=== PATIENT | female | born 1970 | race Hispanic/Latino ===

== ENCOUNTER 2020-02-07 16:02 | Inpatient (IN) | payer OTHER ==
[~2020-02-07] VITALS: Ht 152.4 cm; Wt 101.0 kg
[2020-02-07 16:48] LABS: BASOPHILS % (AUTO) 0.3 % (0.0-5.0); EOSINOPHILS % (AUTO) 0.2 % (0.0-8.0); HEMATOCRIT 36.1 % (36-48); LYMPHOCYTES % (AUTO) 7.8 % (21.0-51.0); MEAN CORPUSCULAR HEMOGLOBIN 25.1 pg (27.0-33.0); MEAN CORPUSCULAR HGB CONC 32.1 g/dL (32.0-36.0); MONOCYTES % (AUTO) 5.6 % (3.0-13.0); NEUTROPHILS % (AUTO) 85.2 % (40.0-77.0); PLATELET COUNT (AUTO) 321 K/uL (130-400); RED BLOOD CELL COUNT(AUTO) 4.63 MIL/uL (4.00-5.50); RED CELL DISTRIBUTION WIDTH 13.8 % (11.0-15.5); WHITE BLOOD COUNT (AUTO) 17.6 K/uL (4.8-10.8)
[2020-02-07 17:13] LABS: POTASSIUM 3.7 mmol/L (3.5-5.1)
[2020-02-07 17:17] LABS: ALBUMIN 2.4 g/dL (3.5-5.0); BILIRUBIN,TOTAL 0.4 mg/dL (0.2-1.0); TOTAL PROTEIN, SERUM 9.2 g/dL (6.0-8.3)
[2020-02-07 17:21] LABS: INR 0.98 (0.85-1.15); PARTIAL THROMBOPLASTIN TIME 31.7 SEC (26.3-35.5); PROTHROMBIN TIME 10.6 SEC (9.6-11.6)
[2020-02-07] MEDS ORDERED: ZOSYN 3.375GM+NS 50ML 50 ML IV ONE (17:22)
[2020-02-07 17:30] LABS: CRP QUANTITATIVE 462.8 mg/L (0.00-9.0)
[2020-02-07 17:54] LABS: ERYTHROCYTE SEDIMENTATION RATE 132 MM/HR (0-20)
[2020-02-07] MEDS ORDERED: VANCOMYCIN 1.5 GM in SODIUM CHLORIDE 0.9% 250 ML IV SCH (18:15)
[2020-02-07] MEDS ORDERED: ONDANSETRON HCL 4 MG/2 ML VIAL IV PRN (20:15)
[2020-02-07] MEDS ORDERED: NITROGLYCERIN 0.4 MG SL TAB SL PRN (20:15)
[2020-02-07] MEDS ORDERED: ACETAMINOPHEN 325 MG TAB PO PRN (20:15)
[2020-02-07] MEDS ORDERED: GLUCAGON 1MG KIT 1 MG ML IM PRN (20:15)
[2020-02-07] MEDS ORDERED: VANCOMYCIN PROTOCOL PER PHARMACY IV PRN (20:15)
[2020-02-07] MEDS ORDERED: DEXTROSE 50%-WATER 50 ML DISP.SYRIN IV PRN (20:15)
[2020-02-07 20:26] LABS: HEMOGLOBIN A1C 11.3 % (4.0-6.0)
[2020-02-07] MEDS ORDERED: COMPOUND IV REFRIGERATED 1 EACH IVSOLN MISC PRN (20:45)
[2020-02-07 21:45] VITALS: BP 161/75
[2020-02-07] MEDS ORDERED: INSLAN SQ ×2 (22:53→22:54)
[2020-02-07] MEDS: FAMOTIDINE 20MG TAB 20 MG TAB PO SCH (23:05)
[2020-02-07] MEDS: INSULIN HUMULIN R 100 UNIT/ML 3ML SQ SCH (23:05)
[2020-02-07] MEDS: SODIUM CHLORIDE 0.9% 1000ML 1,000 ML IV SCH (23:05)
[2020-02-07 23:39] VITALS: BP 154/74
[2020-02-08] VITALS (24 sets, daily range): BP systolic 93–152; BP diastolic 41–92
[2020-02-08] MEDS: ACETAMINOPHEN 325 MG TAB PO PRN ×2 (01:25→23:28)
[2020-02-08] MEDS: ZOSYN 3.375GM+NS 50ML 50 ML IV SCH ×3 (03:52→18:36)
[2020-02-08 06:03] LABS: BASOPHILS % (AUTO) 0.2 % (0.0-5.0); EOSINOPHILS % (AUTO) 0.2 % (0.0-8.0); HEMATOCRIT 29.4 % (36-48); LYMPHOCYTES % (AUTO) 12.8 % (21.0-51.0); MEAN CORPUSCULAR HEMOGLOBIN 24.8 pg (27.0-33.0); MEAN CORPUSCULAR HGB CONC 31.6 g/dL (32.0-36.0); MEAN CORPUSCULAR VOLUME 78.4 fL (79-99); MONOCYTES % (AUTO) 6.5 % (3.0-13.0); NEUTROPHILS % (AUTO) 79.6 % (40.0-77.0); PLATELET COUNT (AUTO) 274 K/uL (130-400); RED BLOOD CELL COUNT(AUTO) 3.75 MIL/uL (4.00-5.50); RED CELL DISTRIBUTION WIDTH 13.8 % (11.0-15.5); WHITE BLOOD COUNT (AUTO) 14.5 K/uL (4.8-10.8)
[2020-02-08 06:19] LABS: ALBUMIN 1.8 g/dL (3.5-5.0); BILIRUBIN,TOTAL 0.4 mg/dL (0.2-1.0); CREATININE 0.8 mg/dL (0.5-1.5); POTASSIUM 3.8 mmol/L (3.5-5.1); TOTAL PROTEIN, SERUM 7.4 g/dL (6.0-8.3)
[2020-02-08] MEDS: INSULIN HUMULIN R 100 UNIT/ML 3ML SQ SCH ×4 (07:30→21:42)
[2020-02-08] MEDS: SODIUM CHLORIDE 0.9% 1000ML 1,000 ML IV SCH ×2 (07:41→16:59)
[2020-02-08] MEDS: VANCOMYCIN 1.5 GM in SODIUM CHLORIDE 0.9% 250 ML IV SCH ×2 (08:00→21:40)
[2020-02-08] MEDS: FAMOTIDINE 20MG TAB 20 MG TAB PO SCH ×2 (09:00→21:40)
[2020-02-08] MEDS: ENOXAPARIN SODIUM 30 MG/0.3 ML SQ SCH (09:00)
[2020-02-08] MEDS ORDERED: PROPOFOL 1000 MG/100 ML 100 ML IV ONE (11:56)
[2020-02-08] MEDS ORDERED: KETAMINE 50MG/ML SYRINGE 50 MG/ML DISP.SYRIN IV ONE (11:57)
[2020-02-08] MEDS ORDERED: FENTANYL CITRATE PF 50 MCG/1 ML 2ML VIAL ONE (11:59)
[2020-02-08] MEDS ORDERED: MIDAZOLAM HCL 1 MG/ML 2ML VIAL ONE (11:59)
[2020-02-08] MEDS ORDERED: ONDANSETRON HCL 4 MG/2 ML VIAL ONE (11:59)
[2020-02-08] MEDS ORDERED: BUPIVACAINE/PF 0.5% 30ML VIAL ONE (12:07)
[2020-02-08] MEDS ORDERED: LIDOCAINE HCL 1% 20 ML VIAL ONE (12:07)
--- NOTE | 2020-02-08 14:30 | NUR ---
REPORT S/P L MET AMPUTATION WITH LOCAL/BLOCK RECEIVED @ 1410 H 96, O2 SATS 94-95 ON RA, B/P 133/84 T 98.5, LAST BLOOD SUGAR @ 1335 235, NOT COVERED, BACK IN ROOM , FULLY AWAKE DENIES PAIN DRESSING INTACT , 2 NAHUN DRAINS UNDER DRESSING. FABIO CONTINUE TO MONITOR.
--- NOTE | 2020-02-08 14:42 | NUR ---
CONTACTED DAUGHTER AT [phone] AND GIVE HER UPDATE ON MOTHER S/P LET MET AMPUTATION. SHE WAS ASKING IF FAMILY CAN SEND HERNANDES BUT WERE TOLD PER POULTRY PINNER NOT AT THIS TIME. INSTRUCTED HER TO CALL IF SHE HAD ANY QUESTIONS.
--- NOTE | 2020-02-08 17:59 | NUR ---
INITIAL SW spoke with patient's sister, Adri Wen. Patient lives with her sister but recently moved out and lives with her adult son and adult daughter. She has no home services. DME: wheelchair. As per sister, patient was able to complete ADL's independently int he past but in the last two months patient has needed assistance. Patient does not drive. She has no PCP. As per sister, patient had set appointment at [facility] but was not able to keep appointment. Pharmacy is [facility] in [place]. Sister informed SW that patient will return to live with her once she is discharged so she can assist patient as needed. DCP is home. Patient has no insurance or benefits. She is a [place] citizen and has worked in the [place]. SW educated sister on [employer] and [employer] prescription discount programs. Patient is being assisted by for; to (do) for financial assistance. Addendum: 02/08/20 at 1803 by KRYSTIAN ELMORE SS Amended: Links added.
--- NOTE | 2020-02-08 20:21 | NUR ---
MEDS SHIFT ASSESSMENT DONE, PLEASE REFER TO CHART. DUE MEDS ADMINISTERED, TOLERATED WELL. CALL LIGHT WITHIN REACH. WILL MONITOR PT. Addendum: 02/09/20 at 0321 by LORETO PRYOR RN RN Amended: Links added.
[2020-02-08] MEDS: INSULIN GLARGINE 100 UNITS/ML 10 ML VIAL SQ SCH (21:42)
[2020-02-09] VITALS: BP 161/92
[2020-02-09] MEDS: ZOSYN 3.375GM+NS 50ML 50 ML IV SCH ×3 (01:27→17:25)
--- NOTE | 2020-02-09 01:27 | NUR ---
MEDS PT FAIRLY ASLEEP. NO DISTRESS NOTED. DUE MEDS HUNG. KEPT UNDISTURBED FOR NOW. WILL MONITOR PT.
[2020-02-09] MEDS: SODIUM CHLORIDE 0.9% 1000ML 1,000 ML IV SCH ×2 (01:50→12:13)
[2020-02-09 04:00] VITALS: BP 158/76
[2020-02-09 05:24] LABS: BASOPHILS % (AUTO) 0.3 % (0.0-5.0); EOSINOPHILS % (AUTO) 0.4 % (0.0-8.0); HEMATOCRIT 28.9 % (36-48); LYMPHOCYTES % (AUTO) 11.4 % (21.0-51.0); MEAN CORPUSCULAR HEMOGLOBIN 24.5 pg (27.0-33.0); MEAN CORPUSCULAR HGB CONC 31.1 g/dL (32.0-36.0); MEAN CORPUSCULAR VOLUME 78.7 fL (79-99); MONOCYTES % (AUTO) 6.4 % (3.0-13.0); PLATELET COUNT (AUTO) 272 K/uL (130-400); RED BLOOD CELL COUNT(AUTO) 3.67 MIL/uL (4.00-5.50); RED CELL DISTRIBUTION WIDTH 13.9 % (11.0-15.5); WHITE BLOOD COUNT (AUTO) 13.1 K/uL (4.8-10.8)
--- NOTE | 2020-02-09 05:45 | NUR ---
SWAB CALLED LAB FOR MRSA SCREEN RESULTS AND REMOTE CONTROL ASSEMBLER WAS INFORMED THAT SWAB WAS NEVER SUBMITTED. NASAL SWAB DONE THEN SENT TO LAB FOR ANALYSIS.
[2020-02-09 05:55] LABS: ALBUMIN 1.8 g/dL (3.5-5.0); BILIRUBIN,TOTAL 0.3 mg/dL (0.2-1.0); CREATININE 0.9 mg/dL (0.5-1.5); TOTAL PROTEIN, SERUM 7.3 g/dL (6.0-8.3)
[2020-02-09] MEDS: INSULIN HUMULIN R 100 UNIT/ML 3ML SQ SCH ×4 (05:57→21:35)
--- NOTE | 2020-02-09 06:40 | NUR ---
MD DR MCCAULEY IN TO SEE PT. SX DRESSING CHANGED BY . NO NEW ORDERS GIVEN, MD JUST STATED TO FOLLOW UP ONCOLOGY CONSULT. BIOPSY RESULTS FROM DERRY COPIED, PLACED IN CHART.
[2020-02-09 08:00] VITALS: BP 178/81
[2020-02-09] MEDS: FAMOTIDINE 20MG TAB 20 MG TAB PO SCH ×2 (09:38→19:48)
[2020-02-09] MEDS: VANCOMYCIN 1.5 GM in SODIUM CHLORIDE 0.9% 250 ML IV SCH ×2 (09:38→20:58)
[2020-02-09] MEDS: ENOXAPARIN SODIUM 30 MG/0.3 ML SQ SCH (09:38)
[2020-02-09 12:00] VITALS: BP 153/83
[2020-02-09 16:00] VITALS: BP 164/83
--- NOTE | 2020-02-09 16:49 | NUR ---
RD NOTIFICATION PT DX OF LEFT FOOT CELLULITIS AND SEPSIS. STATUS POST LEFT FOOT AMPUTATION. PT IS CURRENTLY ON A 75GM CCD, RECOMMENDATION TO PLACE PATIENT ON A 60 GM CCD TO NORMALIZE BLOOD SUGAR LEVELS. TO INCREASE PROTEIN INTAKE RECOMMENDATION FOR GLUCERNA TID. PO INTAKE IS ADEQUATE PER RN. RECENT LAB VALUES: ALB 1.8 (L), BG 212 (H). LAST RECORDED BM WAS 02/07/20. PT HAS A BMI OF 43.47 (OBESITY III) Addendum: 02/09/20 at [address] Amended: Links added.
[2020-02-09] MEDS: INSULIN GLARGINE 100 UNITS/ML 10 ML VIAL SQ SCH (19:49)
[2020-02-09 20:35] VITALS: BP 160/79
--- NOTE | 2020-02-09 22:00 | NUR ---
paged hospitalist for patient's high blood pressure of 185/84 and heart rte of 87. pending call back.
--- NOTE | 2020-02-09 22:21 | NUR ---
paged hospitalist again for patient's hypertension. pending call back.
[2020-02-09] MEDS ORDERED: HYDRALAZINE HCL 20 MG/ML VIAL ONE (22:28)
[2020-02-09] MEDS: ACETAMINOPHEN 325 MG TAB PO PRN (22:31)
[2020-02-10] VITALS (7 sets, daily range): BP systolic 140–181; BP diastolic 75–94
[2020-02-10] MEDS: DIPHENHYDRAMINE HCL 25 MG CAPSULE PO PRN (00:32)
[2020-02-10] MEDS: SODIUM CHLORIDE 0.9% 1000ML 1,000 ML IV SCH ×3 (00:44→16:51)
[2020-02-10] MEDS: ZOSYN 3.375GM+NS 50ML 50 ML IV SCH ×3 (01:03→16:51)
[2020-02-10] MEDS: ACETAMINOPHEN 325 MG TAB PO PRN ×2 (03:24→21:30)
[2020-02-10 04:57] LABS: BASOPHILS % (AUTO) 0.4 % (0.0-5.0); HEMATOCRIT 27.1 % (36-48); MEAN CORPUSCULAR HEMOGLOBIN 24.6 pg (27.0-33.0); MEAN CORPUSCULAR HGB CONC 31.4 g/dL (32.0-36.0); MEAN CORPUSCULAR VOLUME 78.3 fL (79-99); MONOCYTES % (AUTO) 5.9 % (3.0-13.0); NEUTROPHILS % (AUTO) 71.9 % (40.0-77.0); NUCLEATED RED BLOOD CELLS 0.2 % (0.0-0.19); PLATELET COUNT (AUTO) 254 K/uL (130-400); RED BLOOD CELL COUNT(AUTO) 3.46 MIL/uL (4.00-5.50); RED CELL DISTRIBUTION WIDTH 13.8 % (11.0-15.5); WHITE BLOOD COUNT (AUTO) 10.9 K/uL (4.8-10.8)
[2020-02-10 05:31] LABS: ALBUMIN 1.6 g/dL (3.5-5.0); BILIRUBIN,TOTAL 0.3 mg/dL (0.2-1.0); CREATININE 0.9 mg/dL (0.5-1.5); PLATELET MORPHOLOGY LARGE PLTS PRESENT; POTASSIUM 3.4 mmol/L (3.5-5.1)
[2020-02-10] MEDS: INSULIN HUMULIN R 100 UNIT/ML 3ML SQ SCH ×4 (05:42→20:09)
[2020-02-10] MEDS ORDERED: POTASSIUM CHLORIDE 10% ELIXIR 20 MEQ/15 ML UDCUP PO PRN (06:15)
[2020-02-10] MEDS ORDERED: POTASSIUM CHLORIDE 20MEQ/100ML 100 ML IV PRN (06:15)
[2020-02-10] MEDS ORDERED: LIDOCAINE HCL-MPF 1% 2ML VIAL IV PRN (06:15)
[2020-02-10] MEDS ORDERED: POTASSIUM CHLORIDE 20 MEQ ERTAB PO ONE (06:17)
[2020-02-10] MEDS: POTASSIUM CHLORIDE 20 MEQ ERTAB PO PRN ×3 (06:41→12:55)
[2020-02-10] MEDS: VANCOMYCIN 1.5 GM in SODIUM CHLORIDE 0.9% 250 ML IV SCH ×2 (07:11→20:02)
[2020-02-10] MEDS: HYDRALAZINE HCL 20 MG/ML VIAL IV PRN ×2 (09:03→17:08)
[2020-02-10] MEDS: FAMOTIDINE 20MG TAB 20 MG TAB PO SCH ×2 (09:04→20:02)
[2020-02-10] MEDS: ENOXAPARIN SODIUM 30 MG/0.3 ML SQ SCH (09:04)
[2020-02-10] MEDS ORDERED: IOHEXOL-350 75 ML VIAL IV ONE (14:45)
--- NOTE | 2020-02-10 16:21 | NUR ---
RD FOLLOW UP PER MEDICAL RECORD PT HAS BEEN EXPERIENCING HIGH BLOOD PRESSURE. DIET WILL HAVE HEART HEALTHY MODIFICATION TO AID IN CONTROLLING BLOOD PRESSURE. PER MEDICAL RECORD PT IS CONSUMING 100% OF MEALS, WILL DECREASE NUTRITIONAL SUPPLEMENT TO BID. DIETARY WILL CONTINUE TO MONITOR. Addendum: 02/10/20 at [address] Amended: Links added.
--- NOTE | 2020-02-10 17:08 | NUR ---
SPOKE TO PT FAMILY, HANNAH CARREON TO GIVE A BRIEF UPDATE ON PT STATUS.
[2020-02-10] MEDS: INSULIN GLARGINE 100 UNITS/ML 10 ML VIAL SQ SCH (20:10)
[2020-02-11] MEDS: ZOSYN 3.375GM+NS 50ML 50 ML IV SCH ×3 (01:07→17:01)
[2020-02-11] MEDS: SODIUM CHLORIDE 0.9% 1000ML 1,000 ML IV SCH ×2 (01:12→14:07)
[2020-02-11] MEDS: DIPHENHYDRAMINE HCL 25 MG CAPSULE PO PRN (03:21)
[2020-02-11 03:48] VITALS: BP 163/92
[2020-02-11] MEDS: HYDRALAZINE HCL 20 MG/ML VIAL IV PRN ×3 (05:12→17:02)
[2020-02-11] MEDS: INSULIN HUMULIN R 100 UNIT/ML 3ML SQ SCH ×4 (05:12→20:33)
--- NOTE | 2020-02-11 06:28 | NUR ---
doctor abreu at the bedside. he changed the patient's left foot dressing with betadine, kerlex, armando wrap. he wanted to know the results of the ct of the abdomen and i updated him on that and on doctor marquez's decision to see the patient in 1 week. he is concerned about the patient's high blood pressures and would recommend a preparation supervisor to see her whether inpatient or outpatient.
[2020-02-11 06:52] LABS: BASOPHILS % (AUTO) 0.4 % (0.0-5.0); HEMATOCRIT 29.1 % (36-48); LYMPHOCYTES % (AUTO) 16.5 % (21.0-51.0); MEAN CORPUSCULAR HEMOGLOBIN 24.7 pg (27.0-33.0); MEAN CORPUSCULAR HGB CONC 31.6 g/dL (32.0-36.0); MONOCYTES % (AUTO) 5.6 % (3.0-13.0); NEUTROPHILS % (AUTO) 72.5 % (40.0-77.0); NUCLEATED RED BLOOD CELLS 0.3 % (0.0-0.19); PLATELET COUNT (AUTO) 296 K/uL (130-400); RED BLOOD CELL COUNT(AUTO) 3.73 MIL/uL (4.00-5.50); WHITE BLOOD COUNT (AUTO) 10.6 K/uL (4.8-10.8)
[2020-02-11 07:09] LABS: ALBUMIN 1.7 g/dL (3.5-5.0); BILIRUBIN,TOTAL 0.2 mg/dL (0.2-1.0); POTASSIUM 3.9 mmol/L (3.5-5.1); TOTAL PROTEIN, SERUM 7.2 g/dL (6.0-8.3)
[2020-02-11] MEDS: FAMOTIDINE 20MG TAB 20 MG TAB PO SCH ×2 (07:44→19:47)
[2020-02-11] MEDS: VANCOMYCIN 1.5 GM in SODIUM CHLORIDE 0.9% 250 ML IV SCH ×2 (07:44→19:47)
[2020-02-11] MEDS: ENOXAPARIN SODIUM 30 MG/0.3 ML SQ SCH (07:45)
[2020-02-11 08:24] VITALS: BP 170/86
[2020-02-11 14:44] VITALS: BP 149/84
[2020-02-11 16:00] VITALS: BP 168/83
--- NOTE | 2020-02-11 17:11 | NUR ---
RD UPDATE RD notified by RN of Pt requesting nutritional supplement modification as Glucerna causing sugar spikes. Recommend sugar free, 60mL ProMod QD to provide 20gm Protein per day. RD to continue to monitor. Please notify RD as additional nutrition concerns arise. Thank you.
[2020-02-11] MEDS: INSULIN GLARGINE 100 UNITS/ML 10 ML VIAL SQ SCH (19:46)
[2020-02-11 19:50] VITALS: BP 151/68
[2020-02-11] MEDS ORDERED: METOPROLOL TARTRATE 25 MG TAB PO SCH (22:35)
[2020-02-11] MEDS ORDERED: METFORMIN HCL 500 MG TAB.SR.24H PO SCH (22:50)
[2020-02-11 23:51] VITALS: BP 164/82
[2020-02-12] MEDS: ZOSYN 3.375GM+NS 50ML 50 ML IV SCH ×2 (03:30→09:07)
[2020-02-12 03:49] VITALS: BP 143/72
[2020-02-12 04:51] LABS: BASOPHILS % (AUTO) 0.4 % (0.0-5.0); EOSINOPHILS % (AUTO) 1.3 % (0.0-8.0); HEMATOCRIT 28.8 % (36-48); LYMPHOCYTES % (AUTO) 15.9 % (21.0-51.0); MEAN CORPUSCULAR HEMOGLOBIN 24.6 pg (27.0-33.0); MEAN CORPUSCULAR HGB CONC 31.3 g/dL (32.0-36.0); MEAN CORPUSCULAR VOLUME 78.7 fL (79-99); NEUTROPHILS % (AUTO) 72.8 % (40.0-77.0); NUCLEATED RED BLOOD CELLS 0.2 % (0.0-0.19); PLATELET COUNT (AUTO) 287 K/uL (130-400); RED BLOOD CELL COUNT(AUTO) 3.66 MIL/uL (4.00-5.50); RED CELL DISTRIBUTION WIDTH 14.2 % (11.0-15.5); WHITE BLOOD COUNT (AUTO) 9.8 K/uL (4.8-10.8)
[2020-02-12 05:14] LABS: CREATININE 1.5 mg/dL (0.5-1.5); POTASSIUM 3.5 mmol/L (3.5-5.1)
[2020-02-12] MEDS: INSULIN HUMULIN R 100 UNIT/ML 3ML SQ SCH ×3 (05:43→16:30)
[2020-02-12 08:00] VITALS: BP 159/79
[2020-02-12] MEDS ORDERED: METFORMIN HCL 500 MG TABLET PO SCH (08:00)
[2020-02-12] MEDS ORDERED: METOPROLOL TARTRATE 25 MG TAB PO SCH (09:00)
[2020-02-12] MEDS ORDERED: AMLODIPINE BESYLATE 5 MG TAB PO SCH (09:00)
[2020-02-12] MEDS: VANCOMYCIN 1.5 GM in SODIUM CHLORIDE 0.9% 250 ML IV SCH (09:07)
[2020-02-12] MEDS: FAMOTIDINE 20MG TAB 20 MG TAB PO SCH (09:07)
[2020-02-12] MEDS: POTASSIUM CHLORIDE 20 MEQ ERTAB PO PRN (09:08)
[2020-02-12] MEDS: ENOXAPARIN SODIUM 30 MG/0.3 ML SQ SCH (09:11)
[2020-02-12] MEDS ORDERED: LEVOFLOXACIN 750 MG TABLET PO SCH ×2 (10:30→13:30)
[2020-02-12] MEDS ORDERED: AMOX500C2 PO (11:13)
[2020-02-12] MEDS ORDERED: LEVO750T46 PO (11:13)
--- NOTE | 2020-02-12 11:28 | NUR ---
RD UPDATE CONDUCTED A PHONE RE-ASSESSMENT. PT STATED TOLERATING PROMOD, AND EATING 50% OF HER BREAKFAST (02/12/20). PT WAS ASKED IF SHE HAS HAD ANY PRIOR DM EDUCATION, PT DENIED. PT WAS ASKED IF SHE WOULD LIKE EDUCATIONAL MATERIAL IN ROMANIAN, PT AGREED. WILL PROVIDE TO RN AND PLACE IN DESIGNATED PT CHART. PT WAS ENCOURAGED TO CONSUME 75% FOR LUNCH. PT WAS ALSO ENCOURAGED TO CONTACT RD FOR FURTHER QUESTIONS. BG OF 02/12/[address] WILL CONTINUE TO MONITOR. Addendum: 02/12/20 at [address] Amended: Links added.
[2020-02-12 11:30] VITALS: BP 137/78
[2020-02-12] MEDS ORDERED: AMOXICILLIN 500 MG CAPSULE PO SCH ×2 (13:30→14:00)
[2020-02-12] MEDS ORDERED: METO25TA6 PO (14:15)
[2020-02-12] MEDS ORDERED: AMLO5TAB4 PO (14:15)
[2020-02-12] MEDS ORDERED: INSULIN GLARGINE 100 UNITS/ML 10 ML VIAL SQ SCH (21:00)
== END 2020-02-12 16:55 | disposition home or self-care (01) | DRG 853 ==
LOC: EDH 16:02 → EDHIP 16:03 → 3CH 20:01
PROVIDERS: ADMIT Family Medicine; ATTEND Family Medicine
PROC: 0Y6N0ZB Detachment at Left Foot, Partial 2nd Ray, Open Approach (ICD-10-PCS; 2020-02-08)
PROC: 0Y6N0ZC Detachment at Left Foot, Partial 3rd Ray, Open Approach (ICD-10-PCS; 2020-02-08)
PROC: 0Y6N0ZD Detachment at Left Foot, Partial 4th Ray, Open Approach (ICD-10-PCS; 2020-02-08)
PROC: 0Y6N0ZF Detachment at Left Foot, Partial 5th Ray, Open Approach (ICD-10-PCS; 2020-02-08)
PROC: 0Y6N0Z9 Detachment at Left Foot, Partial 1st Ray, Open Approach (ICD-10-PCS; principal; 2020-02-08 12:44)
DX: A41.9 Sepsis, unspecified organism (principal); A48.0 Gas gangrene; M72.6 Necrotizing fasciitis; E11.52 Type 2 diabetes mellitus with diabetic peripheral angiopathy with gangrene; L02.612 Cutaneous abscess of left foot; L03.116 Cellulitis of left lower limb; Z68.41 Body mass index [BMI] 40.0-44.9, adult; M86.8X7 Other osteomyelitis, ankle and foot; E11.622 Type 2 diabetes mellitus with other skin ulcer; E11.621 Type 2 diabetes mellitus with foot ulcer; E11.65 Type 2 diabetes mellitus with hyperglycemia; E11.69 Type 2 diabetes mellitus with other specified complication; D64.9 Anemia, unspecified; B95.2 Enterococcus as the cause of diseases classified elsewhere; I10 Essential (primary) hypertension; L97.529 Non-pressure chronic ulcer of other part of left foot with unspecified severity; E66.01 Morbid (severe) obesity due to excess calories; M77.32 Calcaneal spur, left foot; K21.9 Gastro-esophageal reflux disease without esophagitis; Z83.3 Family history of diabetes mellitus; Z82.3 Family history of stroke; Z98.891 History of uterine scar from previous surgery; Z85.820 Personal history of malignant melanoma of skin; Z79.899 Other long term (current) drug therapy
CPT/HCPCS: 36415; 71045; 73630; 73718; 74177; 80048; 80053; 80202; 82550; 82948; 83036; 83605; 83735; 84145; 84484; 85025; 85610; 85651; 85730; 86140; 87040; 87070; 87076; 87077; 87186; 87205; 87641; 88304; 88307; 88311; 93005; 93926; 93971; 97039; 99291; G0378; J0360; J1650; J1815; J2250; J2405; J2543; J2704; J3010; J3370; J3490; J7030; J7050; Q0163; Q9967

== ENCOUNTER 2023-08-16 20:56 | Inpatient (IN) | payer MEDICARE, OTHER ==
[~2023-08-16] VITALS: Ht 160 cm; Wt 112.9 kg
[~2023-08-16 20:56] MED LIST: AMLO5TAB4 PO; AMOX500C2 PO; INSLAN SQ; LEVO750T68 PO; METO25TA6 PO
[2023-08-16] MEDS: 0.9%NACL 1000ML 1,572 ML IV ONE (21:48)
[2023-08-16 21:51] LABS: BASOPHILS # (AUTO) 0.04 K/uL (0.00-0.20); BASOPHILS % (AUTO) 0.3 % (0.0-5.0); EOSINOPHILS # (AUTO) 0.06 K/uL (0.00-0.70); EOSINOPHILS % (AUTO) 0.4 % (0.0-8.0); HEMATOCRIT 33.3 % (36-48); IMMATURE GRANULOCYTE ABSOLUTE 0.09 K/uL (0-1); LYMPHOCYTES # (AUTO) 0.4 K/uL (1.0-4.8); LYMPHOCYTES % (AUTO) 2.9 % (21.0-51.0); MEAN CORPUSCULAR HEMOGLOBIN 23.9 pg (27.0-33.0); MEAN CORPUSCULAR HGB CONC 31.2 g/dL (32.0-36.0); MEAN CORPUSCULAR VOLUME 76.6 fL (79-99); MONOCYTES # (AUTO) 0.3 K/uL (0.1-1.0); MONOCYTES % (AUTO) 2.3 % (3.0-13.0); NEUTROPHILS # (AUTO) 13.1 K/uL (1.8-7.7); NEUTROPHILS % (AUTO) 93.5 % (40.0-77.0); PLATELET COUNT (AUTO) 226 K/uL (130-400); RED BLOOD CELL COUNT(AUTO) 4.35 MIL/uL (4.00-5.50); RED CELL DISTRIBUTION WIDTH 15.2 % (11.0-15.5)
[2023-08-16 22:02] LABS: CREATININE 1.6 mg/dL (0.5-1.0); POTASSIUM 5.8 mmol/L (3.5-5.1)
[2023-08-16 22:04] LABS: INR 0.94 (0.85-1.15); PROTHROMBIN TIME 11.1 SEC (9.6-11.6)
[2023-08-16 22:05] LABS: PARTIAL THROMBOPLASTIN TIME 23.9 SEC (26.3-35.5)
[2023-08-16] MEDS: ZOSYN 3.375GM +NS 50ML IV ONE (22:05)
[2023-08-16 22:07] LABS: WBC MORPHOLOGY CONSISTENT W/DIFF
[2023-08-16 22:14] LABS: ALBUMIN 2.4 g/dL (3.5-5.0); BILIRUBIN,TOTAL 0.7 mg/dL (0.2-1.0); TOTAL PROTEIN, SERUM 8.4 g/dL (6.0-8.3)
[2023-08-16] MEDS: VANCOMYCIN KIT 1 GM/250 ML IV.KIT IV ONE (22:45)
[2023-08-16] MEDS ORDERED: ONDANSETRON 4MG INJ IV PRN (23:00)
[2023-08-16] MEDS ORDERED: MORPHINE 2 MG SYG IV PRN (23:00)
[2023-08-16 23:39] LABS: HEMOGLOBIN A1C 9.6 % (4.0-6.0)
[2023-08-16] MEDS: VANCOMYCIN 1G/250ML KIT 250 ML IV ONE (23:48)
[2023-08-16] MEDS: ACETAMINOPHEN 325 MG TAB PO PRN (23:55)
[2023-08-17] VITALS (15 sets, daily range): BP systolic 118–141; BP diastolic 64–73; PULSE 72–81; RESP 15–19; TEMP 100.9; O2SAT 99–100
[2023-08-17] MEDS: 0.9%NACL 1000ML 1,000 ML IV ONE (02:16)
[2023-08-17] MEDS: ZOSYN 3.375GM+NS 50ML 50 ML IV SCH (05:28)
[2023-08-17 07:18] LABS: BASOPHILS # (AUTO) 0.03 K/uL (0.00-0.20); BASOPHILS % (AUTO) 0.2 % (0.0-5.0); EOSINOPHILS # (AUTO) 0.01 K/uL (0.00-0.70); EOSINOPHILS % (AUTO) 0.1 % (0.0-8.0); HEMATOCRIT 26.9 % (36-48); IMMATURE GRANULOCYTE ABSOLUTE 0.14 K/uL (0-1); LYMPHOCYTES # (AUTO) 1.9 K/uL (1.0-4.8); LYMPHOCYTES % (AUTO) 10.4 % (21.0-51.0); MEAN CORPUSCULAR HEMOGLOBIN 24.4 pg (27.0-33.0); MEAN CORPUSCULAR HGB CONC 31.2 g/dL (32.0-36.0); MEAN CORPUSCULAR VOLUME 78.2 fL (79-99); MONOCYTES # (AUTO) 0.9 K/uL (0.1-1.0); MONOCYTES % (AUTO) 5.2 % (3.0-13.0); NEUTROPHILS # (AUTO) 15.1 K/uL (1.8-7.7); NEUTROPHILS % (AUTO) 83.3 % (40.0-77.0); PLATELET COUNT (AUTO) 174 K/uL (130-400); RED BLOOD CELL COUNT(AUTO) 3.44 MIL/uL (4.00-5.50); RED CELL DISTRIBUTION WIDTH 15.4 % (11.0-15.5); WHITE BLOOD COUNT (AUTO) 18.1 K/uL (4.8-10.8)
[2023-08-17 07:29] LABS: ALBUMIN 1.9 g/dL (3.5-5.0); BILIRUBIN,TOTAL 0.4 mg/dL (0.2-1.0); POTASSIUM 5.8 mmol/L (3.5-5.1); TOTAL PROTEIN, SERUM 6.8 g/dL (6.0-8.3)
[2023-08-17] MEDS: FAMOTIDINE 20MG VIAL IV SCH (08:08)
[2023-08-17] MEDS: ENOXAPARIN SODIUM 40 MG/0.4 ML SYRINGE SQ SCH (08:08)
[2023-08-17] MEDS: ASPIRIN 81MG CHEW TAB PO SCH (08:08)
[2023-08-17] MEDS: INSULIN HUMULIN R 100 UNIT/ML 3ML SQ SCH (08:09)
[2023-08-17 10:12] LABS: APPEARANCE,URINE TURBID (CLEAR); BILIRUBIN,URINE NEGATIVE (NEGATIVE); COLOR,URINE YELLOW (YELLOW); GLUCOSE, URINE (UA) NEGATIVE (NEGATIVE); KETONES,URINE NEGATIVE (NEGATIVE); LEUKOCYTE ESTERASE ,URINE 75 Leu/uL (NEGATIVE); NITRATE,URINE NEGATIVE (NEGATIVE); PH,URINE 5.5 (5.0-8.0); PROTEIN,URINE 200 mg/dL (NEGATIVE); UROBILINOGEN,URINE 0.2 mg/dL (0.2-1.0)
[2023-08-17 10:13] LABS: ADD UA MICROSCOPIC YES
[2023-08-17 10:16] LABS: CREATININE,URINE RANDOM 220.73 mg/dL (30-135)
[2023-08-17 10:27] LABS: PROTEIN,URINE RANDOM 379.6 mg/dL (0-11.9)
[2023-08-17] MEDS: NA ZIRCON CYCLOSIL(LOKELMA 10GM) PO ONE (10:30)
[2023-08-17 10:38] LABS: BACTERIA,URINE Moderate /HPF (None Seen); YEAST,URINE BUDDING Moderate /HPF (None Seen)
[2023-08-17 10:40] LABS: RBC,URINE 0-1 /HPF (0-1)
[2023-08-17] MEDS: LIDOCAINE HCL 1% 20 ML VIAL ONE (12:40)
[2023-08-17] MEDS: BUPIVACAINE/PF 0.5% 30ML VIAL ONE (12:40)
[2023-08-17] MEDS ORDERED: MIDAZOLAM HCL 1 MG/ML 2ML VIAL ONE ×2 (14:12→14:48)
[2023-08-17] MEDS ORDERED: FENTANYL CITRATE PF 50 MCG/1 ML 2ML VIAL ONE (14:12)
[2023-08-17] MEDS ORDERED: INSLAN SQ (19:43)
[2023-08-17] MEDS: ATORVASTATIN 40 MG TABLET PO SCH (20:01)
[2023-08-17] MEDS: VANCOMYCIN 1.5 GM/250 ML BAG 250 ML IV SCH (22:27)
[2023-08-18] VITALS (9 sets, daily range): BP systolic 118–169; BP diastolic 73–92; PULSE 63–88; RESP 17–20; O2SAT 98–99
[2023-08-18 05:14] LABS: BASOPHILS # (AUTO) 0.04 K/uL (0.00-0.20); BASOPHILS % (AUTO) 0.3 % (0.0-5.0); EOSINOPHILS # (AUTO) 0.13 K/uL (0.00-0.70); HEMATOCRIT 25.6 % (36-48); IMMATURE GRANULOCYTE ABSOLUTE 0.15 K/uL (0-1); LYMPHOCYTES # (AUTO) 1.7 K/uL (1.0-4.8); LYMPHOCYTES % (AUTO) 12.8 % (21.0-51.0); MEAN CORPUSCULAR HEMOGLOBIN 24.2 pg (27.0-33.0); MEAN CORPUSCULAR HGB CONC 31.3 g/dL (32.0-36.0); MEAN CORPUSCULAR VOLUME 77.6 fL (79-99); MONOCYTES # (AUTO) 0.8 K/uL (0.1-1.0); MONOCYTES % (AUTO) 5.6 % (3.0-13.0); NEUTROPHILS # (AUTO) 10.7 K/uL (1.8-7.7); NEUTROPHILS % (AUTO) 79.2 % (40.0-77.0); PLATELET COUNT (AUTO) 209 K/uL (130-400); RED CELL DISTRIBUTION WIDTH 15.6 % (11.0-15.5); WHITE BLOOD COUNT (AUTO) 13.4 K/uL (4.8-10.8)
[2023-08-18 05:39] LABS: % IRON SATURATION 18.5 % (22-44)
[2023-08-18 05:42] LABS: CREATININE 1.8 mg/dL (0.5-1.0); PHOSPHORUS 3.9 mg/dL (2.5-4.9)
[2023-08-18] MEDS ORDERED: COMPOUND IV MISC 1 EACH IVSOLN MISC PRN (12:30)
[2023-08-18] MEDS: IRON SUCROSE COMPLEX 300 MG in 0.9% NACL 250ML IV ONE (19:29)
[2023-08-18] MEDS: INSULIN GLARGINE 100 UNITS/ML 10 ML VIAL SQ SCH (20:37)
[2023-08-19] VITALS (7 sets, daily range): BP systolic 136–181; BP diastolic 66–100; PULSE 61–85; RESP 17–20; O2SAT 97–98
[2023-08-19 05:11] LABS: BASOPHILS # (AUTO) 0.04 K/uL (0.00-0.20); BASOPHILS % (AUTO) 0.4 % (0.0-5.0); EOSINOPHILS % (AUTO) 1.8 % (0.0-8.0); HEMATOCRIT 26.4 % (36-48); IMMATURE GRANULOCYTE ABSOLUTE 0.33 K/uL (0-1); LYMPHOCYTES # (AUTO) 2.3 K/uL (1.0-4.8); LYMPHOCYTES % (AUTO) 20.2 % (21.0-51.0); MEAN CORPUSCULAR HEMOGLOBIN 23.7 pg (27.0-33.0); MEAN CORPUSCULAR HGB CONC 30.3 g/dL (32.0-36.0); MEAN CORPUSCULAR VOLUME 78.3 fL (79-99); MONOCYTES # (AUTO) 0.8 K/uL (0.1-1.0); MONOCYTES % (AUTO) 7.1 % (3.0-13.0); NEUTROPHILS # (AUTO) 7.6 K/uL (1.8-7.7); NEUTROPHILS % (AUTO) 67.6 % (40.0-77.0); NUCLEATED RED BLOOD CELLS 0.2 % (0.0-0.19); PLATELET COUNT (AUTO) 215 K/uL (130-400); RED BLOOD CELL COUNT(AUTO) 3.37 MIL/uL (4.00-5.50); RED CELL DISTRIBUTION WIDTH 15.5 % (11.0-15.5); WHITE BLOOD COUNT (AUTO) 11.2 K/uL (4.8-10.8)
[2023-08-19 05:35] LABS: CREATININE 1.4 mg/dL (0.5-1.0); MAGNESIUM 2.2 mg/dL (1.80-2.40); PHOSPHORUS 4.3 mg/dL (2.5-4.9); POTASSIUM 4.9 mmol/L (3.5-5.1)
[2023-08-19] MEDS: CLOPIDOGREL 75MG TAB PO SCH (08:54)
[2023-08-19] MEDS ORDERED: IOHEXOL-350 75 ML VIAL IV ONE (13:33)
[2023-08-19] MEDS ORDERED: IOHEXOL-350 50ML VIAL IV ONE (13:33)
[2023-08-19] MEDS: HYDRALAZINE 20MG/ML VIAL IV PRN (20:08)
[2023-08-19] MEDS: LABETALOL 20MG VIAL IV PRN (23:20)
[2023-08-20] VITALS (7 sets, daily range): BP systolic 148–188; BP diastolic 75–95; PULSE 69–80; RESP 17–20; O2SAT 97–98
[2023-08-20 03:46] LABS: BASOPHILS # (AUTO) 0.06 K/uL (0.00-0.20); BASOPHILS % (AUTO) 0.5 % (0.0-5.0); EOSINOPHILS # (AUTO) 0.24 K/uL (0.00-0.70); EOSINOPHILS % (AUTO) 1.9 % (0.0-8.0); HEMATOCRIT 27.2 % (36-48); IMMATURE GRANULOCYTE ABSOLUTE 0.94 K/uL (0-1); LYMPHOCYTES # (AUTO) 2.2 K/uL (1.0-4.8); LYMPHOCYTES % (AUTO) 17.4 % (21.0-51.0); MEAN CORPUSCULAR HGB CONC 30.9 g/dL (32.0-36.0); MEAN CORPUSCULAR VOLUME 77.7 fL (79-99); MONOCYTES # (AUTO) 0.7 K/uL (0.1-1.0); MONOCYTES % (AUTO) 5.8 % (3.0-13.0); NEUTROPHILS # (AUTO) 8.5 K/uL (1.8-7.7); NUCLEATED RED BLOOD CELLS 0.6 % (0.0-0.19); PLATELET COUNT (AUTO) 247 K/uL (130-400); RED CELL DISTRIBUTION WIDTH 15.3 % (11.0-15.5); WHITE BLOOD COUNT (AUTO) 12.7 K/uL (4.8-10.8)
[2023-08-20 04:01] LABS: CREATININE 1.4 mg/dL (0.5-1.0); POTASSIUM 4.5 mmol/L (3.5-5.1)
[2023-08-20] MEDS: METOPROLOL TARTRATE 25 MG TAB PO SCH (10:06)
[2023-08-20] MEDS: AMLODIPINE 5 MG TAB PO SCH (10:07)
[2023-08-20] MEDS: FUROSEMIDE 40MG VIAL IV ONE (10:12)
[2023-08-20] MEDS: IRON SUCROSE COMPLEX 300 MG in 0.9% NACL 250ML 250 ML IV ONE (19:18)
[2023-08-21] VITALS: BP 165/90; PULSE 73; RESP 20
[2023-08-21 04:00] VITALS: BP 154/74; PULSE 80; RESP 20
[2023-08-21 05:10] LABS: BASOPHILS # (AUTO) 0.07 K/uL (0.00-0.20); BASOPHILS % (AUTO) 0.6 % (0.0-5.0); EOSINOPHILS # (AUTO) 0.24 K/uL (0.00-0.70); HEMATOCRIT 29.3 % (36-48); IMMATURE GRANULOCYTE ABSOLUTE 0.71 K/uL (0-1); LYMPHOCYTES # (AUTO) 2.1 K/uL (1.0-4.8); LYMPHOCYTES % (AUTO) 16.7 % (21.0-51.0); MEAN CORPUSCULAR HEMOGLOBIN 23.8 pg (27.0-33.0); MEAN CORPUSCULAR HGB CONC 30.4 g/dL (32.0-36.0); MEAN CORPUSCULAR VOLUME 78.3 fL (79-99); MONOCYTES # (AUTO) 0.8 K/uL (0.1-1.0); MONOCYTES % (AUTO) 6.8 % (3.0-13.0); NEUTROPHILS # (AUTO) 8.4 K/uL (1.8-7.7); NEUTROPHILS % (AUTO) 68.1 % (40.0-77.0); NUCLEATED RED BLOOD CELLS 0.4 % (0.0-0.19); PLATELET COUNT (AUTO) 256 K/uL (130-400); RED BLOOD CELL COUNT(AUTO) 3.74 MIL/uL (4.00-5.50); RED CELL DISTRIBUTION WIDTH 15.1 % (11.0-15.5); WHITE BLOOD COUNT (AUTO) 12.3 K/uL (4.8-10.8)
[2023-08-21 05:24] LABS: CREATININE 1.2 mg/dL (0.5-1.0); POTASSIUM 3.9 mmol/L (3.5-5.1)
[2023-08-21 08:00] VITALS: BP 155/82; PULSE 77; RESP 16; O2SAT 98
[2023-08-21 12:00] VITALS: BP 124/72; PULSE 69; RESP 17
[2023-08-21 16:00] VITALS: BP 161/105; PULSE 77; RESP 16
[2023-08-21 20:00] VITALS: BP 157/73; PULSE 84; RESP 20; O2SAT 96
[2023-08-21] MEDS: ACETAMINOPHEN 325 MG TAB PO PRN (21:02)
[2023-08-22] VITALS (16 sets, daily range): BP systolic 130–184; BP diastolic 59–86; PULSE 65–82; RESP 16–20; O2SAT 96–97
[2023-08-22] MEDS: MEROPENEM 1 GM VIAL ONE (00:49)
[2023-08-22] MEDS: MEROPENEM 1 GM in 0.9%NACL 100ML 100 ML IVPB SCH (00:49)
[2023-08-22 04:09] LABS: BASOPHILS # (AUTO) 0.08 K/uL (0.00-0.20); BASOPHILS % (AUTO) 0.7 % (0.0-5.0); EOSINOPHILS # (AUTO) 0.27 K/uL (0.00-0.70); EOSINOPHILS % (AUTO) 2.4 % (0.0-8.0); HEMATOCRIT 28.8 % (36-48); IMMATURE GRANULOCYTE ABSOLUTE 0.54 K/uL (0-1); LYMPHOCYTES % (AUTO) 17.9 % (21.0-51.0); MEAN CORPUSCULAR HEMOGLOBIN 23.8 pg (27.0-33.0); MEAN CORPUSCULAR HGB CONC 30.6 g/dL (32.0-36.0); MEAN CORPUSCULAR VOLUME 77.8 fL (79-99); MONOCYTES # (AUTO) 0.7 K/uL (0.1-1.0); MONOCYTES % (AUTO) 6.6 % (3.0-13.0); NEUTROPHILS # (AUTO) 7.6 K/uL (1.8-7.7); NEUTROPHILS % (AUTO) 67.6 % (40.0-77.0); NUCLEATED RED BLOOD CELLS 0.2 % (0.0-0.19); PLATELET COUNT (AUTO) 247 K/uL (130-400); RED CELL DISTRIBUTION WIDTH 15.3 % (11.0-15.5); WHITE BLOOD COUNT (AUTO) 11.3 K/uL (4.8-10.8)
[2023-08-22 04:24] LABS: INR 0.96 (0.85-1.15); PROTHROMBIN TIME 11.4 SEC (9.6-11.6)
[2023-08-22 04:35] LABS: CREATININE 1.4 mg/dL (0.5-1.0); PHOSPHORUS 4.9 mg/dL (2.5-4.9); POTASSIUM 3.6 mmol/L (3.5-5.1)
[2023-08-22] MEDS: 0.9%NACL 1000ML 1,000 ML IV SCH ×2 (11:13→15:00)
[2023-08-22] MEDS ORDERED: SODIUM BICARB 50MEQ 50ML VIAL 50 ML ONE (12:29)
[2023-08-22] MEDS ORDERED: LIDOCAINE HCL 400MG/20ML VIAL ONE (12:29)
[2023-08-22] MEDS ORDERED: FENTANYL CITRATE PF 50 MCG/1 ML 2ML VIAL ONE (12:30)
[2023-08-22] MEDS ORDERED: HEPARIN 10,000 UNIT/10ML (1,000 UNIT/ML) VIAL ONE (12:30)
[2023-08-22] MEDS ORDERED: MIDAZOLAM HCL 1 MG/ML 2ML VIAL ONE (12:30)
[2023-08-22] MEDS ORDERED: IODIXANOL 320 MG/ML 100 ML VIAL ONE (12:30)
[2023-08-22] MEDS ORDERED: NITROGLYCERIN 50MG VIAL ONE (12:31)
[2023-08-22] MEDS ORDERED: LABETALOL 20MG SYG IV ONE ×2 (13:18→13:25)
[2023-08-23] MEDS ORDERED: AMLODIPINE 5 MG TAB PO SCH (08:00)
== END 2023-08-22 23:05 | DRG 853 ==
LOC: EDH 20:56 → EDHIP 20:57 → UNDOADMIN 20:57 → EDHIP 22:57 → 4DH 08-17 16:17
PROVIDERS: ADMIT Internal Medicine; ATTEND Internal Medicine
PROC: 0KBW0ZZ Excision of Left Foot Muscle, Open Approach (ICD-10-PCS; principal; 2023-08-17 14:22)
PROC: B41G1ZZ Fluoroscopy of Left Lower Extremity Arteries using Low Osmolar Contrast (ICD-10-PCS; 2023-08-22)
DX: A41.51 Sepsis due to Escherichia coli [E. coli] (principal); A48.0 Gas gangrene; M72.6 Necrotizing fasciitis; I21.A1 Myocardial infarction type 2; L03.116 Cellulitis of left lower limb; L97.429 Non-pressure chronic ulcer of left heel and midfoot with unspecified severity; E11.52 Type 2 diabetes mellitus with diabetic peripheral angiopathy with gangrene; L02.612 Cutaneous abscess of left foot; N17.9 Acute kidney failure, unspecified; Z16.24 Resistance to multiple antibiotics; Z68.41 Body mass index [BMI] 40.0-44.9, adult; E11.621 Type 2 diabetes mellitus with foot ulcer; L97.529 Non-pressure chronic ulcer of other part of left foot with unspecified severity; E66.01 Morbid (severe) obesity due to excess calories; D50.9 Iron deficiency anemia, unspecified; E11.22 Type 2 diabetes mellitus with diabetic chronic kidney disease; E11.319 Type 2 diabetes mellitus with unspecified diabetic retinopathy without macular edema; E11.622 Type 2 diabetes mellitus with other skin ulcer; E78.5 Hyperlipidemia, unspecified; E87.70 Fluid overload, unspecified; I12.9 Hypertensive chronic kidney disease with stage 1 through stage 4 chronic kidney disease, or unspecified chronic kidney disease; N18.9 Chronic kidney disease, unspecified; R65.20 Severe sepsis without septic shock; Z79.2 Long term (current) use of antibiotics; Z85.820 Personal history of malignant melanoma of skin; Z79.899 Other long term (current) drug therapy; Z79.84 Long term (current) use of oral hypoglycemic drugs
CPT/HCPCS: 36247; 36415; 73620; 73721; 75635; 75710; 75716; 76770; 80048; 80053; 80202; 81001; 82550; 82570; 82948; 83036; 83540; 83550; 83605; 83735; 83880; 84100; 84145; 84156; 84484; 85025; 85610; 85651; 85730; 87040; 87070; 87076; 87077; 87088; 87186; 93005; 93306; 93356; 93925; 93970; 96365; 96375; 99156; 99157; C1760; C1894; G0378; J0360; J1644; J1650; J1756; J1815; J1940; J2185; J2250; J2543; J3010; J3370; J3490; J7050; Q9967; A4216; A4222; A4223; A4930; A6446; C1769; C9250; J0665